=== PATIENT | male | born 1980 | race Caucasian/White ===

== ENCOUNTER 2019-08-19 18:11 | Inpatient (IN) | payer OTHER ==
[~2019-08-19] VITALS: Ht 180.3 cm; Wt 78.5 kg
--- NOTE | 2019-08-19 18:26 | NUR ---
sol, from home, had syncopal episode x 3, fell hit head on the carpet. on room air, breathing evenly and unlabored. connected to the monitor and pulse ox. kept comfortable, will continue to monitor accordingly.
[2019-08-19 18:36] LABS: BASOPHILS # (AUTO) 0.1 /CMM (0.0-0.2); BASOPHILS % (AUTO) 0.5 % (0.0-2.0); EOSINOPHILS % (AUTO) 1.4 % (0.0-6.0); HEMATOCRIT 38 % (39-51); HEMOGLOBIN 12.5 g/dL (13.5-17.5); LYMPHOCYTES # (AUTO) 3.2 /CMM (0.8-4.8); LYMPHOCYTES % (AUTO) 25.1 % (20.0-44.0); MEAN CORPUSCULAR HGB CONC 33 g/dl (31.0-36.0); MEAN CORPUSCULAR VOLUME 81 fL (80-96); MONOCYTES # (AUTO) 0.9 /CMM (0.1-1.30); MONOCYTES % (AUTO) 7.3 % (2.0-12.0); NEUTROPHILS # (AUTO) 8.3 /CMM (1.8-8.9); NEUTROPHILS % (AUTO) 65.7 % (43.0-81.0); PLATELET COUNT (AUTO) 372 /CMM (150-450); RED BLOOD CELL COUNT(AUTO) 4.63 MIL/uL (4.5-6.0); WHITE BLOOD COUNT (AUTO) 12.6 K/uL (4.3-11.0)
--- NOTE | 2019-08-19 18:36 | NUR ---
urine collected and sent to lab
[2019-08-19] MEDS ORDERED: ENALAPRIL MALEATE (18:59)
[2019-08-19] MEDS ORDERED: INSU100V28 IJ (18:59)
[2019-08-19] MEDS ORDERED: GABA800T11 PO (18:59)
[2019-08-19] MEDS ORDERED: METO-295 PO (18:59)
[2019-08-19] MEDS ORDERED: POTASSIUM CHLORIDE (18:59)
[2019-08-19] MEDS ORDERED: INSU100I26 SQ (18:59)
[2019-08-19] MEDS ORDERED: ONDANSETRON HCL/PF - ER 4 MG/2 ML VIAL IV ONE (19:00)
[2019-08-19 19:06] LABS: ALANINE AMINOTRANSFERASE 22 U/L (12-78); ALBUMIN 2.9 g/dL (3.4-5.0); ALKALINE PHOSPHATASE 80 U/L (46-116); ASPARTATE AMINOTRANSFERASE 21 U/L (15-37); BILIRUBIN,DIRECT 0.1 mg/dL (0.0-0.2); BILIRUBIN,TOTAL 0.5 mg/dL (0.2-1.0); CALCIUM, SERUM 9.2 mg/dL (8.5-10.1); CARBON DIOXIDE 32 mmol/L (21-32); CREATININE 1.2 mg/dL (0.6-1.3); POTASSIUM 4.7 mmol/L (3.5-5.1); TOTAL PROTEIN, SERUM 6.9 g/dL (6.4-8.2); UREA NITROGEN, BLOOD 15 mg/dL (7-18)
--- NOTE | 2019-08-19 19:19 | NUR ---
epic paged waiting for call back
[2019-08-19 19:24] LABS: CHLORIDE 80 mmol/L (98-107); GLUCOSE 379 mg/dL (74-106); SODIUM SERUM 123 mmol/L (136-145)
[2019-08-19] MEDS ORDERED: IV NS 0.9% 1,000 ML BAG IV ONE (19:30)
--- NOTE | 2019-08-19 19:35 | NUR ---
called rn sup for tele bed waiting for assignment
--- NOTE | 2019-08-19 19:53 | NUR ---
TELE [id number]
[2019-08-19] MEDS ORDERED: ONDANSETRON HCL/PF 4 MG/2 ML VIAL ONE (19:55)
[2019-08-19] MEDS ORDERED: MAG HYDROX/AL HYDROX/SIMETH 30 ML UDC PO PRN (20:30)
[2019-08-19] MEDS ORDERED: Z GUARD REMEDY 2 OZ OINT TP PRN (20:30)
[2019-08-19] MEDS ORDERED: MAGNESIUM HYDROXIDE 30 ML UDC PO PRN (20:30)
[2019-08-19] MEDS ORDERED: ACETAMINOPHEN 325 MG TABLET PO PRN (20:30)
[2019-08-19] MEDS ORDERED: *INSULIN REGULAR(HUMULIN R)HUM 100 UNIT/ML VIAL SQ PRN (20:30)
[2019-08-19] MEDS ORDERED: DEXTROSE 50%-WATER 50 ML DISP.SYRIN IV PRN (20:30)
[2019-08-19] MEDS ORDERED: HYDROCODONE/APAP 5/325MG 1 EACH TABLET PO PRN (20:30)
[2019-08-19] MEDS ORDERED: ONDANSETRON HCL/PF 4 MG/2 ML VIAL IVP PRN (20:30)
[2019-08-19] MEDS ORDERED: ZOLPIDEM TARTRATE 5 MG TABLET PO PRN (20:30)
[2019-08-19 21:00] VITALS: BP 122/70
--- NOTE | 2019-08-19 21:00 | NUR ---
REPORT GIVEN TO CHUCHO THORNTON FOR SHERICE PT TRNAPSORTED TO 3RD FLOOR
--- NOTE | 2019-08-19 21:10 | NUR ---
M/S RN ADMITTING NOTES 39 Y/O MALE PATIENT RECEIVED VIA WHEELCHAIR FROM ER DUE TO 3 EPISODES OF SYNCOPE. A/O x4 ABLE TO FOLLOW COMMANDS AND MAKE NEEDS KNOWN. NO SIGNS OF ACUTE DISTRESS, NO SOB, NO CURRENT COMPLAINTS OF PAIN. PATIENT IS ABLE TO AMBULATE, BUT WITH A CANE. IV LOCATED ON L AC #18. SKIN ASSESSMENT COMPLETED, NOTED WITH LEFT LEG SCABBING. BELONGINGS LIST COMPLETED. PATIENT IS CONTINENT WITH URINAL AT BEDSIDE AND PATIENT STATED HE HAS NOT HAD A BOWEL MOVEMENT SINCE LAST WEEK. SAFETY PRECAUTIONS IN PLACE WITH BED IN LOWEST POSITION, LOCKED, AND CALL LIGHT WITHIN REACH. WILL CONTINUE TO MONITOR.
[2019-08-19] MEDS: IV NS 0.9% 1,000 ML IV SCH (22:52)
[2019-08-19] MEDS: GABAPENTIN 400 MG CAPSULE PO SCH (22:52)
[2019-08-19] MEDS: BLOOD SUGAR DIAGNOSTIC 1 EACH STRIP VI SCH (22:57)
[2019-08-19] MEDS: INSULIN GLARGINE, 100 UNIT/ML CARTRIDGE SQ SCH (23:14)
--- NOTE | 2019-08-19 23:16 | NUR ---
MEDICAL CENTER MANAGER NOTES FINGER STICK BLOOD SUGAR 358 GAVE REGULAR INSULIN 10 U PER SLIDING SCALE ON R ARM. LANTUS 4 UNITS GIVEN ORDERED ON L ARM. WILL CONTINUE TO MONITOR.
--- NOTE | 2019-08-20 | NUR ---
SVEN ([facility] [place]): [phone]
[2019-08-20] MEDS: IV NS 0.9% 1,000 ML IV SCH ×2 (05:20→17:29)
[2019-08-20] MEDS: BLOOD SUGAR DIAGNOSTIC 1 EACH STRIP VI SCH ×4 (06:18→21:17)
[2019-08-20 06:19] LABS: CALCIUM, SERUM 8.2 mg/dL (8.5-10.1); CREATININE 1.4 mg/dL (0.6-1.3); PHOSPHORUS 2.6 mg/dL (2.5-4.9)
[2019-08-20 06:20] LABS: BASOPHILS % (AUTO) 0.2 % (0.0-2.0); EOSINOPHILS % (AUTO) 1.2 % (0.0-6.0); HEMATOCRIT 34 % (39-51); HEMOGLOBIN 11.6 g/dL (13.5-17.5); LYMPHOCYTES # (AUTO) 2.8 /CMM (0.8-4.8); MEAN CORPUSCULAR HGB CONC 34 g/dl (31.0-36.0); MEAN CORPUSCULAR VOLUME 80 fL (80-96); MONOCYTES # (AUTO) 0.9 /CMM (0.1-1.30); MONOCYTES % (AUTO) 7.3 % (2.0-12.0); NEUTROPHILS # (AUTO) 8.7 /CMM (1.8-8.9); NEUTROPHILS % (AUTO) 69.3 % (43.0-81.0); PLATELET COUNT (AUTO) 339 /CMM (150-450); RED BLOOD CELL COUNT(AUTO) 4.29 MIL/uL (4.5-6.0); WHITE BLOOD COUNT (AUTO) 12.6 K/uL (4.3-11.0)
[2019-08-20 06:23] LABS: MAGNESIUM 1.1 mg/dL (1.8-2.4)
[2019-08-20] MEDS: INSULIN REGULAR, HUMAN 100 UNIT/ML 3 ML VIAL SQ PRN ×2 (06:24→12:28)
--- NOTE | 2019-08-20 06:25 | NUR ---
M/S RN NOTES FSBS 201 6 UNITS OF INSULIN GIVEN PER SLIDING SCALE.
--- NOTE | 2019-08-20 06:43 | NUR ---
RN NOTES PAGED EPIC TO INFORM SUPPORT ASSOCIATE OF Pt's CRITICAL LOW MAG OF 1.1 WAITING FOR CALL BACK.
--- NOTE | 2019-08-20 06:47 | NUR ---
RN NOTES SPOKE WITH DR. OCONNOR ON THE PHONE. GAVE VERBAL ORDER TO GIVE 4MG OF MAG. WILL CARRY OUT ORDERS.
[2019-08-20] MEDS ORDERED: Magnesium 1 GM/2 ML VIAL IV ONE (07:00)
[2019-08-20] MEDS: INSULIN REGULAR, HUMAN 100 UNIT/ML 3 ML VIAL SQ SCH ×3 (07:30→17:37)
[2019-08-20] MEDS ORDERED: Magnesium 1GM/D5W 100ML PREMIX PIGGYBACK IV ONE (07:30)
--- NOTE | 2019-08-20 07:30 | NUR ---
RN NOTES NON ADMINISTERED THE SCHEDULED INSULIN OF 15UN AT 0730. ALREADY GIVEN 6UN OF INSULIN PER SLIDING SCALE AT 0630. WILL ENDORSE TO DAYSHIFT RN TO RECHECK BG LEVEL AT 1200 SCHEDULED TIME.
[2019-08-20] MEDS: Magnesium 1GM/D5W 100ML PREMIX 100 ML IV SCH ×4 (07:42→11:31)
[2019-08-20 08:00] VITALS: BP 82/50
--- NOTE | 2019-08-20 08:00 | NUR ---
M/S RN AM NOTES PATIENT CURRENTLY RESTING IN BED A/O x4. ABLE TO MAKE NEEDS KNOWN. NO SIGNS OF ACUTE DISTRESS, SOB, AND CURRENTLY NO COMPLAINTS OF PAIN. IV LOCATED ON L AC #18. PATIENT ABLE TO AMBULATE, BUT WITH CANE. SHOULD REMAIN IN BED HE FEELS DIZZY OFTEN, PATIENT USES URINAL. SAFETY PRECAUTIONS IN PLACE WITH BED IN LOWEST POSITION, LOCKED, BED ALARM ON, AND CALL LIGHT WITHIN REACH.
[2019-08-20 08:02] VITALS: BP 82/50
[2019-08-20 08:05] LABS: IRON, SERUM 46 ug/dl (50-175); TOTAL IRON BINDING CAPACITY 176 ug/dl (250-450)
--- NOTE | 2019-08-20 08:08 | NUR ---
M/S RN CLOSING NOTES PATIENT CURRENTLY RESTING IN BED A/O x4. ABLE TO MAKE NEEDS KNOWN. NO SIGNS OF ACUTE DISTRESS, SOB, AND CURRENTLY NO COMPLAINTS OF PAIN. IV LOCATED ON L AC #18. PATIENT ABLE TO AMBULATE, BUT WITH CANE. SHOULD REMAIN IN BED HE FEELS DIZZY OFTEN, PATIENT USES URINAL. SAFETY PRECAUTIONS IN PLACE WITH BED IN LOWEST POSITION, LOCKED, BED ALARM ON, AND CALL LIGHT WITHIN REACH. WILL ENDORSE TO ONCOMING SHIFT ABOUT SHERICE.
[2019-08-20 08:19] LABS: FERRITIN 164 ng/mL (8-388)
[2019-08-20 08:36] VITALS: BP_SYST 70; BP_SYST 90; BP_DIAS 40; BP_DIAS 50
--- NOTE | 2019-08-20 08:36 | NUR ---
CHECKED PT'S ORTHOSTATS AND UNABLE TO CHECK PT IN STANDING POSITION DUE TO SEVERE DIZZINESS.
--- NOTE | 2019-08-20 09:00 | NUR ---
PLACED PT BACK TO TELE WITH ST HR 108.WITH HYPOTENSION.ORTHOSTATIC VITALS DONE.DR PROCTOR MADE AWARE.PT DENIES ANY PAIN OR DISTRESS.WILL CONTINUE TO MONITOR.CALL LIGHT PLACED WITHIN REACH.
[2019-08-20] MEDS: METOCLOPRAMIDE HCL 10 MG TABLET PO SCH ×3 (09:13→17:35)
[2019-08-20] MEDS: GABAPENTIN 400 MG CAPSULE PO SCH ×2 (09:15→17:35)
--- NOTE | 2019-08-20 09:15 | NUR ---
PT CHECKED HIS BLOOD SUGAR WITH HIS MACHINE AFTER EATING 80% BREAKFAST AND IT WAS 107.
--- NOTE | 2019-08-20 09:20 | NUR ---
PT MADE LARGE SOFT BM AT THIS TIME DUE TO THE MILK OF MAGNESIA GIVEN LAST NIGHT DUE TO PT'S C/O THAT HE HASN'T MADE BM FOR A WEEK.GOOD PERICARE DONE AND ENCOURAGED INCREASE FLUID INTAKE.
--- NOTE | 2019-08-20 10:55 | NUR ---
WOUND CARE CONSULT: PT PRESENTS WITH DRY ESCHAR TO LEFT LATERAL ANKLE AND SCARRING TO LEFT LOWER LEG, PRESENT ON ADMISSION. RECOMMEND DPM CONSULT. DR FREEMAN NOTIFIED OF CONSULT REQUEST. PT IS INDEPENDENT WITH BED MOBILITY AND CONTINENT. CURRENT KARLA SCORE IS 18. WILL SEE PRN. PEREZ IN AGREEMENT WITH PLAN OF CARE. Addendum: 08/20/19 at 1057 by RENATA LOPEZ WNDNU Amended: Links added.
[2019-08-20 12:00] VITALS: BP 90/55
--- NOTE | 2019-08-20 12:30 | NUR ---
IV 0.9 % NS NOT DUE TO BE REPLACED YET DUE TO THE 4 MG IV BAGS ADMINISTERED DELAYING INFUSION OF THE NEW BAG OF IV NS.
[2019-08-20 16:00] VITALS: BP 110/66
[2019-08-20] MEDS ORDERED: ENAL2.5T PO (16:26)
[2019-08-20] MEDS ORDERED: ONDA4TAB10 PO (16:49)
[2019-08-20] MEDS ORDERED: TAMS-12 PO (16:49)
[2019-08-20] MEDS ORDERED: POTA20PA3 PO (16:49)
--- NOTE | 2019-08-20 19:58 | NUR ---
M/S RN PM NOTES PATIENT CURRENTLY RESTING IN BED A/O X4. NO SIGNS OF ACUTE DISTRESS NOTED. ABLE TO MAKE NEEDS KNOWN. DENIES PAIN OR DISCOMFORT AT THIS TIME. IV LOCATED ON L AC #18,PATENT AND INTACT. PATIENT ABLE TO AMBULATE WITH THE USE OF CANE. PATIENT USES URINAL. SAFETY PRECAUTIONS IN PLACE WITH BED IN LOWEST POSITION, LOCKED, BED ALARM ON, AND CALL LIGHT WITHIN REACH.
[2019-08-20 20:18] VITALS: BP 113/52
[2019-08-20] MEDS: INSULIN GLARGINE, 100 UNIT/ML CARTRIDGE SQ SCH (21:32)
[2019-08-21] VITALS: BP 107/61
[2019-08-21] MEDS: IV NS 0.9% 1,000 ML IV SCH ×3 (02:21→12:30)
[2019-08-21 04:44] VITALS: BP 121/73
[2019-08-21 06:22] VITALS: BP_SYST 103; BP_SYST 141; BP_SYST 95; BP_DIAS 60; BP_DIAS 68; BP_DIAS 84
[2019-08-21] MEDS: INSULIN REGULAR, HUMAN 100 UNIT/ML 3 ML VIAL SQ SCH ×2 (06:44→12:27)
[2019-08-21] MEDS: INSULIN REGULAR, HUMAN 100 UNIT/ML 3 ML VIAL SQ PRN ×2 (06:47→12:23)
[2019-08-21] MEDS: BLOOD SUGAR DIAGNOSTIC 1 EACH STRIP VI SCH ×2 (06:47→12:16)
--- NOTE | 2019-08-21 07:00 | NUR ---
FINANCIAL ANALYST AM NOTES PATIENT IN BED SLEEPING, AROUSES EASILY. NO S/SX OF ACUTE DISTRESS NOTED. DENIES PAIN OR DISCOMFORT. ON TELE MONITOR READING ST 106. IV LOCATED ON L AC #18. ALL NEEDS ATTENDED AND ANTICIPATED. SAFETY PRECAUTIONS IN PLACE WITH BED IN LOWEST POSITION, LOCKED, BED ALARM ON, AND CALL LIGHT WITHIN REACH.
--- NOTE | 2019-08-21 07:09 | NUR ---
TELE CLOSING NOTES
--- NOTE | 2019-08-21 07:20 | NUR ---
ms rn received on bed awake,alert,oriented x4,not in any form of distress, respirations even and unlabored,no sob noted, lungs are clear,abdomen soft,positive bowel sounds,denies pain at this time, will monitor patient's condition.
--- NOTE | 2019-08-21 07:30 | NUR ---
ms argenis was seen by ferny hernandez/ orders made and carried out.
[2019-08-21 07:31] LABS: ALBUMIN 2.3 g/dL (3.4-5.0); BILIRUBIN,TOTAL 0.2 mg/dL (0.2-1.0); CALCIUM, SERUM 8.4 mg/dL (8.5-10.1); CREATININE 1.1 mg/dL (0.6-1.3); MAGNESIUM 1.7 mg/dL (1.8-2.4); PHOSPHORUS 3.2 mg/dL (2.5-4.9); POTASSIUM 4.3 mmol/L (3.5-5.1); TOTAL PROTEIN, SERUM 5.7 g/dL (6.4-8.2)
[2019-08-21 07:38] LABS: BASOPHILS % (AUTO) 0.3 % (0.0-2.0); EOSINOPHILS % (AUTO) 1.1 % (0.0-6.0); HEMATOCRIT 35 % (39-51); HEMOGLOBIN 11.6 g/dL (13.5-17.5); LYMPHOCYTES # (AUTO) 2.6 /CMM (0.8-4.8); LYMPHOCYTES % (AUTO) 24.3 % (20.0-44.0); MEAN CORPUSCULAR HGB CONC 33 g/dl (31.0-36.0); MEAN CORPUSCULAR VOLUME 81 fL (80-96); MONOCYTES # (AUTO) 0.7 /CMM (0.1-1.30); MONOCYTES % (AUTO) 6.4 % (2.0-12.0); NEUTROPHILS # (AUTO) 7.2 /CMM (1.8-8.9); NEUTROPHILS % (AUTO) 67.9 % (43.0-81.0); PLATELET COUNT (AUTO) 331 /CMM (150-450); RED BLOOD CELL COUNT(AUTO) 4.31 MIL/uL (4.5-6.0); WHITE BLOOD COUNT (AUTO) 10.6 K/uL (4.3-11.0)
[2019-08-21 08:00] VITALS: BP 123/86
--- NOTE | 2019-08-21 08:30 | NUR ---
ms rn was seen by dr. thao claudio/ orders made and carried out, to be discharge home today.
[2019-08-21] MEDS: GABAPENTIN 400 MG CAPSULE PO SCH (09:25)
[2019-08-21] MEDS: METOCLOPRAMIDE HCL 10 MG TABLET PO SCH ×2 (09:25→12:13)
--- NOTE | 2019-08-21 09:30 | NUR ---
ms more breakfast served,due meds given,tolerated well.
[2019-08-21] MEDS: Magnesium 1GM/D5W 100ML PREMIX 100 ML IV SCH ×2 (09:46→11:03)
--- NOTE | 2019-08-21 13:00 | NUR ---
ms pattern drum maker instructions given and understood, went home via [employer],all needs attended.
== END 2019-08-21 13:00 | disposition home or self-care (01) | DRG 48 ==
LOC: ER 18:13 → TELE 19:58 → MED 23:35 → TELE 08-20 14:25 → MED 08-21 08:25
PROVIDERS: ADMIT Family Medicine; ATTEND Internal Medicine
DX: G90.8 Other disorders of autonomic nervous system (principal); N17.0 Acute kidney failure with tubular necrosis; E11.10 Type 2 diabetes mellitus with ketoacidosis without coma; E44.0 Moderate protein-calorie malnutrition; E87.1 Hypo-osmolality and hyponatremia; K31.84 Gastroparesis; E88.09 Other disorders of plasma-protein metabolism, not elsewhere classified; E11.42 Type 2 diabetes mellitus with diabetic polyneuropathy; E11.43 Type 2 diabetes mellitus with diabetic autonomic (poly)neuropathy; E11.65 Type 2 diabetes mellitus with hyperglycemia; I10 Essential (primary) hypertension; D72.829 Elevated white blood cell count, unspecified; Z79.4 Long term (current) use of insulin; Z68.24 Body mass index [BMI] 24.0-24.9, adult; R23.4 Changes in skin texture; D64.9 Anemia, unspecified; E86.1 Hypovolemia; Z83.3 Family history of diabetes mellitus; I95.1 Orthostatic hypotension
CPT/HCPCS: 36415; 70450-TC; 80048-TC; 80053-TC; 80061-TC; 80076-TC; 80305; 82728-TC; 82962-TC; 83540-TC; 83735-TC; 84100-TC; 84484-TC; 85025-TC; 85730-TC; 87081-TC; 93307-TC; 93880-TC; 97116-TC; 97530-TC; G0378; G0480; J1815; J2405; J3475; J7030; J8597